=== PATIENT | male | born 1960 | race Caucasian/White ===

== ENCOUNTER 2020-05-13 20:28 | Observation (INO) ==
[2020-05-14] MEDS ORDERED: Naloxone 0.4 MG/ML INJ IVP PRN (01:21)
[2020-05-14] MEDS ORDERED: Ondansetron 4 MG/2 ML VIAL IVP PRN (01:21)
[2020-05-14] MEDS ORDERED: Perflutren Lipid Microsphere 1.3 ML in 0.9 % Sodium Chloride 8.7 ML IVP PRN (01:24)
[2020-05-14] MEDS ORDERED: *HR* Enoxaparin 100 MG/ML SYRINGE SQ STA (01:25)
[2020-05-14] MEDS: Ringers Solution, Lactated 1,000 ML IVC SCH ×2 (01:36→08:35)
[2020-05-14 02:33] LABS: Basophils # 0.1 K/mcL (0.0-0.2); Basophils % 0.8 %; Eosinophils # 0.2 K/mcL (0.0-0.6); Eosinophils % 2.4 %; Hematocrit 42.4 % (37.5-50.1); Immature Granulocytes % 0.4 % (0-4); Lymphocytes # 3.6 K/mcL (0.6-4.6); Lymphocytes % 45.9 %; Mean Corpuscular Hemoglobin 29.8 pg (28.0-33.3); Mean Corpuscular Volume 90.2 fL (83.0-100.0); Monocytes # 0.8 K/mcL (0.0-1.3); Monocytes % 9.9 %; Neutrophils # 3.2 K/mcL (1.6-8.9); Platelet Count 254 K/mcL (140-400); Red Cell Distribution Width 13.2 % (11.5-14.5); Segmented Neutrophils % 40.6 %; White Blood Count 7.8 K/mcL (4.3-11.1)
[2020-05-14 02:36] LABS: Prothrombin Time 11.9 Seconds (9.4-12.1)
[2020-05-14 02:57] LABS: Alanine Aminotransferase 29 Units/L (7-52); Albumin/Globulin Ratio 1.6 (1.1-2.2); Alkaline Phosphatase 44 Units/L (34-104); Aspartate Amino Transferase 15 Units/L (13-39); BUN/Creatinine Ratio 17 (6-26); Bilirubin,Total 0.5 mg/dL (0.3-1.0); Blood Urea Nitrogen 13 mg/dL (6-20); Calcium 9.1 mg/dL (8.6-10.3); Carbon Dioxide 22 mEq/L (23-29); Chloride 108 mEq/L (98-107); Chol/HDL Ratio 6.8 (0-4.9); Cholesterol 184 mg/dL (< 200); Globulin 2.5 g/dL (2.4-3.5); Glucose 92 mg/dL (70-105); HDL Cholesterol 27 mg/dL (40-59); LDL Cholesterol,Calculated 108 mg/dL (< 100); Osmolality,Calculated 286 (280-300); Potassium 3.9 mEq/L (3.5-5.1); Sodium 138 mEq/L (136-145); Total Protein 6.5 g/dL (6.4-8.9); Triglycerides 243 mg/dL (< 150); Troponin I < 0.03 ng/mL (< 0.04); eGFR For African Americans > 60 (> 60); eGFR For Non-African Americans > 60 (> 60)
[2020-05-14] MEDS ORDERED: Acetaminophen 325 MG TABLET PO PRN (03:31)
[2020-05-14] MEDS ORDERED: Metoprolol XL (24 HR) Succ 25 MG TAB.ER.24H PO SCH (09:00)
[2020-05-14 11:38] VITALS: BP 130/88
== END 2020-05-14 13:58 | disposition home or self-care (01) ==
LOC: 2NENU
PROVIDERS: ADMIT Family Medicine; ATTEND Family Medicine